=== PATIENT | male | born 1970 | race American Indian/Alaskan Native ===

== ENCOUNTER 2017-02-03 | Inpatient (IN) | payer OTHER ==
--- NOTE | ~2017-02-03 | HP ---
Unit #: [id number] #: [id number] Patient: ASHLEY TAVERA [id number] [place] [address] [id number] I MR#: [id number] NAME: ASHLEY TAVERA ROOM: 79 Age: 47 Sex: M Admission Date: 02/03/2017 : 1970 Attending Physician: Eric Lorenzo M.D. Admitting Physician: Eric Lorenzo M.D. Primary Care Physician: Frieda Menendez Family HISTORY AND PHYSICAL HISTORY OF PRESENT ILLNESS Ashley is a 47 year old admitted to [facility] because of his abuse of alcohol. PAST MEDICAL HISTORY 1. Long history of alcohol abuse. 2. History of detox seizures. PAST SURGICAL HISTORY Nothing reported. ALLERGIES No known drug allergies. SOCIAL HISTORY He does not smoke. Drinks up to a fifth of liquor on a daily basis. Denies illicit drug use. FAMILY HISTORY Medically noncontributory. REVIEW OF SYSTEMS CONSTITUTIONAL: No fever or chills. HEENT: Denies any sore throat, ear pain or runny nose. CARDIOVASCULAR: Denies chest pain, irregular heart rhythm or palpitations. CHEST: Denies shortness of breath or cough. No hemoptysis. GASTROINTESTINAL: Denies nausea, vomiting, diarrhea or chronic constipation. ENDOCRINE: Denies history of increased thirst or urination. No recent significant weight loss or gain. GENITOURINARY: Denies dysuria, frequency, or hematuria. SKIN: Denies any rashes. HEMATOLOGIC: Denies history of increased bleeding or bruising. MUSCULOSKELETAL: Denies any hot, swollen joints. No generalized muscle pain. NEUROLOGIC: Denies problems with vision or speech. No frequent, severe headaches. No numbness, tingling or weakness in any extremities. Denies loss of bladder or bowel control. CURRENT MEDICATIONS Detox protocol. PHYSICAL EXAMINATION Unit #: [id number] #: [id number] Patient: ASHLEY TAVERA GENERAL: Alert, well-nourished, in no apparent distress. VITAL SIGNS: Blood pressure 150/94, heart rate 100, respirations 16, temperature 98.6. WEIGHT: 240. HEIGHT: 6 feet 3 inches. SKIN: Warm and dry without rash or lesion. HEENT: Normocephalic. TMs not viewed. Oral and nasal passages clear. Conjunctivae clear. PERRLA. EOMs intact. NECK: Supple without lymphadenopathy or thyromegaly. HEART: Regular rate and rhythm without murmur. LUNGS: Clear. ABDOMEN: Soft with right upper quadrant tenderness. Positive bowel sounds. : Not done. EXTREMITIES: No evidence of cyanosis, clubbing or edema. Moves all without focal deficit. NEUROLOGICAL: Grossly within normal limits. Cranial Nerves: II: Visual buck are intact. III, IV AND : Extraocular movements are intact. Pupils are equal, round and reactive to light. V: Facial sensation is grossly normal. VII: Facial movements and expression are normal. VIII: Auditory acuity grossly intact. IX, X: Uvula is midline. Phonation is normal. XI: Patient shrugs shoulders and turns head normally. XII: Tongue protrudes in the midline. Sensory and Motor Function: Sensory and motor sensation is grossly normal. Motor: moves all extremities well. Coordination: Gait is normal. Deep Tendon Reflexes: Intact. IMPRESSION Psychiatric admission. RECOMMENDATIONS PSYCHIATRIC: Per psychiatrist. MEDICAL: See no contraindications to participate in facility's activities. MEDICAL PROGNOSIS Good. MEDICAL CONDITION Stable. Dictated by... Rosalee Hicks P.A.-C. for Jeremiah Pillai/ovi TD: 02/03/2017 22:08 JOB #: [id number] Unit #: [id number] #: [id number] Patient: ASHLEY TAVERA HISTORY AND PHYSICAL Page 1 of 1 X Rosalee Hicks X HISTORY AND PHYSICAL
--- NOTE | ~2017-02-03 | PN ---
Unit #: [id number] #: [id number] Patient: ASHLEY TAVERA [id number] [facility] [address] [place] [address] [id number] MR#: [id number] NAME: ASHLEY TAVERA ROOM: [facility] Age: 47 Sex: M Admission Date: 02/03/2017 : 1970 Attending Physician: Eric Lorenzo M.D. Admitting Physician: Eirc Lorenzo M.D. Primary Care Physician: [facility] PROGRESS NOTES DATE 02/04/2017 DISCUSSION Ashley is a 47-year-old male seen on 02/04/2017. The patient interviewed, chart reviewed. Obtained information from nursing staff. The patient compliant and cooperative. Mood sad, dysphoric, seclusive, isolative, guarded, flat affect, sad, dysphoric mood. The patient was having stomach cramping, nausea received Zofran which was affective. Complete review of systems unremarkable. MENTAL STATUS EXAMINATION General appearance, the patient dressed casually. Attention span and concentration fair. Oriented to place and person. Mood and affect labile. Speech monotone. Thought process concrete. The patient denied any thoughts of harming self or others. Recent and remote memory poor. Insight and judgement poor. DIAGNOSES 1. Alcohol use disorder severe. 2. Cannabis abuse disorder moderate. 3. Mood disorder NOS. ASSESSMENT/PLAN Advise to continue with current medication and therapeutic protocol. If needed consider further adjustment of medication. Dictated by... Jeremiah Miramontes/shamir TD: 02/06/2017 21:43 JOB #: [id number] Unit #: [id number] #: [id number] Patient: ASHLEY TAVERA PEASHANA PROGRESS NOTES Page 1 of 1 X Eric Lorenzo MD X PROGRESS NOTE
--- NOTE | ~2017-02-03 | PA ---
Unit #: [id number] #: [id number] Patient: ASHLEY TAVERA [id number] [facility] [address] [place] [address] [id number] I MR#: [id number] NAME: ASHLEY TAVERA ROOM: P179 Age: 47 Sex: M Admission Date: 02/03/2017 : 1970 Date of Assessment: 02/04/2017 Attending Physician: Eric Lorenzo M.D. Admitting Physician: Eric Lorenzo M.D. PSYCHIATRIC ASSESSMENT REVISED REPORT INFORMANT The patient reliability, fair; informant and chart reliability, good. CHIEF COMPLAINT Substance abuse. HISTORY OF PRESENT ILLNESS Mr. Ashley Carvalho is a 47-year-old male seen on 02/03/2017. The patient was brought to [facility] by police. The patient was found intoxicated and passed out in a liquor store parking lot. His car was left at the store. The patient reported that he is a binge drinker and has been drinking the last several days. The patient reported hearing music, seeing faces, shapes. The patient denied any current suicidal or homicidal ideation. Reported diagnosed with depression, but not taking his medication. The patient was sober for almost 6 years, reported that he relapsed after his father in 11/2015. The patient needing inpatient admission at this time for psychiatric stabilization. PAST PSYCHIATRIC HISTORY Remarkable for history of outpatient treatment, inpatient treatment at [place] in 2014, multiple inpatient treatment and different programs. FAMILY HISTORY AND SOCIAL HISTORY PAST PSYCHIATRIC HISTORY Unremarkable. PAST MEDICAL HISTORY Unremarkable. FAMILY HISTORY AND SOCIAL HISTORY Poor support system. No history of any abuse. MEDICAL HISTORY None. ALLERGIES Unit #: [id number] #: [id number] Patient: ASHLEY TAVREA No known drug allergies. SUBSTANCE ABUSE HISTORY History of marijuana and alcohol abuse. REVIEW OF SYSTEMS HEENT: Eyes, clear. Ears, nose, mouth, and throat; clear. CARDIOVASCULAR: Unremarkable. RESPIRATORY: Unremarkable. GI: Unremarkable. : Unremarkable. SKIN: Unremarkable. LYMPH NODE: Unremarkable. NEUROLOGIC: Unremarkable. ENDOCRINE: Unremarkable. HEMATOLOGIC: Unremarkable. ALLERGIC/IMMUNOLOGIC: Unremarkable. MUSCULOSKELETAL: Muscle strength and tone, no atrophy or abnormal movement. Gait normal. MENTAL STATUS EXAMINATION CONSTITUTIONAL: Measurement of vital signs; temperature 98.5, heart rate 64, respiratory rate 20, blood pressure 127/74. Height 6 feet 3 inches, weight 240 pounds. GENERAL APPEARANCE: The patient dressed casually. The patient did not show any facial deformity. MUSCULOSKELETAL: Please see above. PSYCHIATRIC EXAMINATION Description of speech; regular rate. Description of thought process, goal directed. Description of association, intact. Description of abnormal psychotic thinking; the patient denied any hallucination or delusions, but mood lability, substance abuse. Description of the patient's judgment: Concerning everyday activity, poor. Social situation, poor. Concerning psychiatric condition, poor. Complete mental status examination; oriented in time, place, and person. Recent and remote memory, fair. Attention span and concentration, fair. Language, intact. Fund of knowledge, fair. Insight and judgment, fair to slightly impaired. ASSETS AND LIABILITIES Assets, the patient is articulate and able to take care of her ADL. Liability, history of substance abuse and depression. ADMITTING DIAGNOSES Psychiatric: Alcohol use disorder, severe, F10.20; cannabis abuse, moderate, F12.20; mood disorder, not otherwise specified, F32.9. Secondary diagnosis: Deferred. Medical diagnosis: None. Stressors: Psychosocial stressors. PSYCHIATRIC PLAN AND TREATMENT GOAL AND DISCHARGE PLAN 1. Advised to admit the patient on the inpatient unit. Provide safe, supportive, and structured environment. Unit #: [id number] #: [id number] Patient: ASHLEY TAVERA 2. Ordered labs; CBC, CMP, UA, and UDS. 3. Detox protocol and detox monitoring. Resume home medication. If needed, consider further adjustment of medication. TREATMENT GOAL To attain euthymic mood, gain insight into his problem, and learn coping skills. DISCHARGE PLAN Plan to stabilize the patient and consider followup in outpatient program. ESTIMATED LENGTH OF STAY 3 to 5 days. ISHAN/lianne TD: 02/04/2017 11:17 JOB #: [id number] Dictated by... Eric Lorenzo M.D. ISHAN/lianne TD: 02/04/2017 11:26 JOB #: [id number] PSYCHIATRIC ASSESSMENT Page 1 of 1 X Eric Lorenzo MD PSYCHIATRIC ASSESSMENT
--- NOTE | ~2017-02-03 | A ---
[facility] Nutrition Therapy DATE: 02/06/17 Patient: ASHLEY TAVERA Physician: HERNANDEZ Address: [address] [place] [address] Room/Bed: [address], Zip: [place] [address] Admit Date: 02/03/17 Date of : [birth year] Height: 6 3 Weight: [phone] NUTRITIONAL ASSESSMENT: REASON: NUTRITION RISK POINT- EATING DISORDER WITH ACTIVE SYMPTOMS PATIENT ADMITTED FOR ETOH DETOX AND HALLUCINATIONS PMH: LONG HX ETOH ABUSE, HX WITHDRAWAL SEIZURES Anthropometrics: HT: 6'3", WT: 240#, BMI: 30, %IBW: 122 Labs: 02/04/17- K: 3.4 - ALL OTHER NUTRITIONAL LAB VALUES WNL Meds: ARTURO, DETOX PROTOCOL, PROZAC Assessment: PATIENT IS A 47 Y/O MALE ADMITTED FOR ETOH DETOX AND HALLUCINATIONS. PATIENT IS CURRENTLY EMPLOYED, LIVES AT A SOBER LIVING FACILITY, AND HE DRINKS UP TO A FIFTH OF ETOH DAILY INCLLUDING BINGE DRINKING. PER NEEDS ASSESSMENT PATIENT STATED A GOOD APPETITE WITH NO RECENT WEIGHT LOSS. NURSING REPORTED POOR-FAIR PO INTAKES. UPON ADMIT PATIENT WAS ACTIVELY DETOXING AND HAD C/O NAUSEA, STOMACH CRAMPS, ANXIETY, POOR APPETITE, AND POOR SLEEP - WHICH MAY LEAD TO DECREASED PO INTAKES. PATIENT HAS CURRENT C/O NAUSEA AND HEADACHES. THERE IS NO HX OF ANY EATING DISORDERS. PATIENT'S BMI IS ABOVE A HEALTHY RANGE OF 19-25 AND HE IS 122% OF HIS IBW. THIS RD SUSPECTS NUTRITION RISK POINT MAY BE ERRONEOUS. THERE ARE NO SKIN ISSUES NOTED ATT. PATIENT IS ON A REGULAR DIET AND HIS DETOX SYMPTOMS ARE IMPROVING. Dx: INADEQUATE NUTRIENT INTAKE R/T CURRENT CONDITION, DETOXING AEB DECREASED PO INTAKES, C/O NAUSEA Intervention: REGULAR DIET, MEDS PER MD, DETOX, PSYCH Monitoring, Evaluation and Goals: 1. ADEQUATE PO INTAKES >50% OF MEALS 2. PREVENT, CORRECT MICRO/MACRO NUTRIENT DEFICIENCIES MONITOR: WEIGHTS, LABS, PO/FLUID INTAKES Recommendations: 1. CONTINUE REGULAR DIET TOLERATED. OFFER SNACKS BETWEEN MEALS 2. ENCOURAGE ADEQUATE PO AND FLUID INTAKES 3. IF PO INTAKES CONTINUE TO BE <50% OF MEALS PLEASE ORDER ENSURE BID TO PROMOTE ADEQUATE KCAL AND PROTEIN INTAKES [facility] Nutrition Therapy DATE: 02/06/17 Patient: ASHLEY TAVERA Physician: HERNANDEZ Address: [address] [place] [address] Room/Bed: [address], Zip: [place] [address] Admit Date: 02/03/17 Date of : [birth year] Height: 6 3 Weight: [phone] TO F/U PER PROTOCOL AND PRN R/T PATIENT MILDLY COMPROMISED Respectfully, TRACY KISER RD, LD [facility] cc: client file
--- NOTE | ~2017-02-03 | PN ---
Unit #: [id number] #: [id number] Patient: ASHLEY TAVERA [id number] [facility] [address] [place] [address] [id number] I MR#: [id number] NAME: ASHLEY TAVERA ROOM: [facility] Age: 47 Sex: M Admission Date: 02/03/2017 : 1970 Attending Physician: Eric Lorenzo M.D. Admitting Physician: Eric Lorenzo M.D. Primary Care Physician: [facility] PROGRESS NOTES DATE 02/05/2017 DISCUSSION Ashley is a 47-year-old male seen on 02/05/2017. The patient interviewed, chart reviewed. Obtained information from nursing staff. The patient continues to be isolative, flat affect, sad, dysphoric but denied any thoughts of harming self or others. The patient reports feeling better denied and suicidal or homicidal ideation able to attend some of the group. Still having headache, tremors, nausea, weird dreams. Currently on detox protocol. The patient received Ativan this morning twice. Complete review of systems unremarkable. MENTAL STATUS EXAMINATION General appearance, the patient dressed casually. Attention span and concentration fair. Oriented to place and person. Mood and affect labile. Speech monotone. Thought process concrete. The patient denied any thoughts of harming self or others or any psychotic symptom. Recent and remote memory poor. Insight and judgement poor. DIAGNOSES Alcohol use disorder severe Mood disorder NOS ASSESSMENT/PLAN Advise to continue with detox protocol. If needed consider further adjustment of medication. Dictated by... Jeremiah Miramontes/shamir TD: 02/07/2017 05:16 JOB #: [id number] Unit #: [id number] #: [id number] Patient: ASHLEY TAVERA MABLESHANA PROGRESS NOTES Page 1 of 1 X Eric Lorenzo MD PROGRESS NOTE
--- NOTE | ~2017-02-03 | DS ---
Unit #: [id number] #: [id number] Patient: ASHLEY TAVERA [id number] [place] [address] [id number] I MR#: [id number] NAME: ASHLEY TAVERA ROOM: [facility] Age: 47 Sex: M Admission Date: 02/03/2017 : 1970 Discharge Date: 02/06/2017 Attending Physician: Eric Lorenzo M.D. Primary Care Physician: [facility] DISCHARGE SUMMARY REASON FOR ADMISSION Alcohol abuse. DIAGNOSTIC STUDIES LABORATORY RESULTS: Unremarkable except potassium 3.4. HOSPITAL COURSE The patient was admitted to inpatient unit on 02/03/2017 and discharged on 02/06/2017. The patient was treated on the inpatient unit with chemical dependency group, expressive therapy, psychoeducation, psychotherapy, and detox protocol. The patient responded well with the above modalities of treatment and continued on Prozac. The patient was subsequently discharged with a plan to follow up in [facility] program. DISCHARGE MEDICATIONS Prozac 40 mg daily for depression. DISCHARGE DIAGNOSES Psychiatric: Alcohol use disorder, severe, F10.20; cannabis abuse, moderate, F12.20; mood disorder, not otherwise specified, 32.9. Secondary diagnosis: Deferred. Medical diagnosis: None. Stressors: Psychosocial stressors. DISCHARGE INSTRUCTIONS The patient to follow up in outpatient clinic as per social worker school. CONDITION ON DISCHARGE The patient was pleasant and cooperative. Denied any psychotic symptom or any suicidal ideation. PROGNOSIS Guarded. DIET AND ACTIVITY As tolerated. Dictated by... Eric Lorenzo M.D. Unit #: [id number] #: [id number] Patient: ASHLEY TAVERA SZC/modl TD: 02/07/2017 04:57 JOB #: [id number] DISCHARGE SUMMARY Page 1 of 1 X Eric Lorenzo MD X DISCHARGE SUMMARY
[2017-02-04 11:57] LABS: BASOPHIL% 0.6 % (0-2.5); EOSINOPHIL# 0.1 X10e3 (0-0.7); EOSINOPHIL% 1.3 % (0.0-7.0); HEMATOCRIT 42.1 % (38.0-50.0); HEMOGLOBIN 14.1 gm/dL (13.0-16.0); LYMPHOCYTE% 20.3 % (17.0-45.0); MEAN CELL VOLUME 87.7 FL (83-96); MEAN CORPUSCULAR HEMOGLOBIN 29.3 PG (28-34); MEAN CORPUSCULAR HGB CONC 33.5 g/dL (30-36); MEAN PLATELET VOLUME 7.4 FL (6.5-11.5); MONOCYTE# 0.4 X10e3 (0-1.0); MONOCYTE% 7.7 % (3.0-12.0); NEUTROPHIL# 3.6 X10e3 (1.5-7.1); NEUTROPHIL% 70.1 % (40-75); PLATELET COUNT 237 X10e3 (140-420); RED CELL DISTRIBUTION WIDTH 13.5 % (11.0-15.5); WHITE BLOOD COUNT 5.1 X10e3 (4.0-10.5)
[2017-02-04 11:59] LABS: DIFF IND NO
[2017-02-04 12:10] LABS: ALBUMIN SERUM 3.7 g/dL (3.5-5.0); BILIRUBIN,TOTAL 1.4 mg/dL (0.2-2.0); BUN/CREATININE RATIO 16.25; CALCIUM SERUM 8.7 mg/dL (8.4-10.2); CREATININE SERUM 0.8 mg/dL (0.6-1.4); GLOM FILT RATE Estimated 104.9 mL/min (>60); POTASSIUM 3.4 mmol/L (3.5-5.1); PROTEIN TOTAL SERUM 6.6 g/dL (6.0-8.3)
== END 2017-02-06 15:49 | disposition home or self-care (01) | DRG 897 ==
LOC: P1E 08:08
PROVIDERS: Psychiatry & Neurology Psychiatry
PROC: HZ2ZZZZ Detoxification Services for Substance Abuse Treatment (ICD-10-PCS; principal; 2017-02-04)
DX: F10.20 Alcohol dependence, uncomplicated (principal); F39 Unspecified mood [affective] disorder; F12.20 Cannabis dependence, uncomplicated
CPT/HCPCS: 80053; 85025; 86592

== ENCOUNTER 2017-02-11 18:00 | Inpatient (IN) | payer OTHER ==
--- NOTE | ~2017-02-11 | CO ---
Unit #: [id number] #: [id number] Patient: ASHLEY TAVERA [id number] [place] [address] [id number] MR#: [id number] NAME: ASHLEY TAVERA ROOM: [facility] Age: 47 Sex: M Admission Date: 02/11/2017 : 1970 Attending Physician: Eric Lorenzo M.D. Primary Care Physician: Generic Doctor Not In System Consultation Date: 02/12/2017 CONSULTATION REPORT ORDERING PROVIDER Dr. Lorenzo. REASON FOR CONSULT Rash on buttocks. SUBJECTIVE The patient reports that the rash has been present for several days. He thinks that it is from lying in bed and not moving for several days. He reports that the rash is painful, but not itchy. He has a small amount of bloody drainage coming from the rash. OBJECTIVE The patient was noted to have a maculopapular rash that almost is linear in nature and has secondary crusting. It is draining a small amount of bloody drainage on to the sheet. The skin surrounding the area is not erythematous. ASSESSMENT Rash. PLAN To use topical antibiotics and continue to monitor. Dictated by... Shey Eason/lianne TD: 02/13/2017 03:15 JOB #: [id number] CONSULTATION REPORT Page 1 of 1 X SMOOTH EDEN APRN CONSULTATION REPORT
--- NOTE | ~2017-02-11 | PN ---
Unit #: [id number] #: [id number] Patient: ASHLEY TAVERA [id number] [facility] [address] [place] [address] [id number] I MR#: [id number] NAME: ASHLEY TAVERA ROOM: [facility] Age: 47 Sex: M Admission Date: 02/11/2017 : 1970 Attending Physician: Eric Lorenzo M.D. Admitting Physician: Eric Lorenzo M.D. Primary Care Physician: Generic Doctor Not In System [facility] PROGRESS NOTES DATE OF SERVICE: 02/13/2017 DISCUSSION Ashley is a 47-year-old male, seen on 02/13/2017. The patient interviewed, chart reviewed, and obtained information from nursing staff. The patient is compliant and cooperative. Mood is sad, dysphoric, flat affect. The patient reports still having withdrawal symptoms from alcohol, anxious, nervous. Vital signs stable; temperature 98.4, pulse 64, respiratory rate 16, blood pressure 125/83. REVIEW OF SYSTEMS Complete review of systems unremarkable. MENTAL STATUS EXAMINATION General appearance, the patient dressed casually. Attention span and concentration, fair. Oriented in time, place, and person. Mood and affect, sad and dysphoric. Speech, monotone. Thought process, concrete. The patient denied any thoughts of harming self or others. Recent and remote memory, fair to poor. Insight and judgment, fair to poor. DIAGNOSES 1. Alcohol use disorder, severe. 2. Mood disorder, not otherwise specified. ASSESSMENT/PLAN Advised to continue with current medication and therapeutic protocol. If needed, consider further adjustment of medication. Dictated by... Jeremiah Miramontes/lianne TD: 02/14/2017 22:12 JOB #: [id number] Unit #: [id number] #: [id number] Patient: ASHLEY TAVERA PROGRESS NOTES Page 1 of 1 X Eric Lorenzo MD PROGRESS NOTE
--- NOTE | ~2017-02-11 | HP ---
Unit #: [id number] #: [id number] Patient: ASHLEY TAVERA [id number] [facility] [address] [place] [address] [id number] MR#: [id number] NAME: ASHLEY TAVERA ROOM: [facility] Age: 47 Sex: M Admission Date: 02/11/2017 : 1970 Attending Physician: Eric Lorenzo M.D. Admitting Physician: Eric Lorenzo M.D. Primary Care Physician: Generic Doctor Not In System HISTORY AND PHYSICAL The patient is a 47-year-old male admitted to [facility] on 02/11/2017 to detox from alcohol. The patient has had other admissions to this facility for the same. Most recent admission was on 02/03/2017 where a full history and physical was completed. That history and physical has been reviewed no changes need to be made. Dictated by... Shey Eason/shamir TD: 02/13/2017 05:39 JOB #: [id number] HISTORY AND PHYSICAL Page 1 of 1 X SMOOTH EDEN APRN X HISTORY AND PHYSICAL
--- NOTE | ~2017-02-11 | PA ---
Unit #: [id number] #: [id number] Patient: ASHLEY TAVERA [id number] [facility] [address] [place] [address] [id number] I MR#: [id number] NAME: ASHLEY TAVERA ROOM: 85 Age: 47 Sex: M Admission Date: 02/11/2017 : 1970 Date of Assessment: Attending Physician: Eric Lorenzo M.D. Admitting Physician: Eric Lorenzo M.D. Primary Care Physician: Generic Doctor Not In System PSYCHIATRIC ASSESSMENT INFORMANTS The patient's reliability, fair; chart reliability, good. CHIEF COMPLAINT Alcohol abuse, withdrawal. HISTORY OF PRESENT ILLNESS Mr. Gibson is a 47-year-old male, presented with the above-mentioned complaint. The patient was recently discharged on 02/06/2017 from [facility], readmitted due to expressing withdrawal symptoms from alcohol. Reported feeling very sad and depressed. Reported he has been off from his Prozac from the last week. The patient reported that he was residing in a motel from the last week, drinking a lot. The patient reported that he has not eaten in the last week, experiencing withdrawal symptoms including tremor, headache, sweating, anxiety, nausea, agitation, depression. PAST PSYCHIATRIC HISTORY Remarkable for history of previous admission at [facility] on 02/04/2017 and discharged on 02/06/2017. History of multiple treatment in the past at different program. FAMILY HISTORY AND SOCIAL HISTORY Poor support system. No history of abuse. MEDICAL HISTORY None. ALLERGIES No known drug allergies. SUBSTANCE ABUSE HISTORY History of alcohol abuse and marijuana abuse. REVIEW OF SYSTEMS HEENT: Eyes, clear. Ears, nose, mouth, and throat; clear. CARDIOVASCULAR: Unremarkable. RESPIRATORY: Unremarkable. GI: Unremarkable. : Unremarkable. SKIN: Unremarkable. LYMPH NODE: Unremarkable. NEUROLOGIC: Unremarkable. Unit #: [id number] #: [id number] Patient: ASHLEY TAVERA ENDOCRINE: Unremarkable. HEMATOLOGIC: Unremarkable. ALLERGIC/IMMUNOLOGIC: Unremarkable. MUSCULOSKELETAL: Muscle strength and tone, no atrophy or abnormal movement. Gait normal. MENTAL STATUS EXAMINATION CONSTITUTIONAL: Measurement of vital signs; temperature 98.6, pulse 54, respirations 18, blood pressure 137/97. Height 6 feet 4 inches, weight 240 pounds. GENERAL APPEARANCE: The patient dressed casually. The patient did not show any facial deformity. MUSCULOSKELETAL: Muscle strength and tone, no atrophy or abnormal movement. Gait normal. PSYCHIATRIC EXAMINATION Description of speech; regular rate, normal volume. Description of thought process, goal directed. Description of association, intact. Description of abnormal psychotic thinking; the patient denied any hallucination or delusions, but suicidal ideation, denied any homicidal ideation, substance abuse. Description of patient's judgment; concerning everyday activity, poor. Social situation, poor. Concerning psychiatric condition, poor. Complete mental status examination; oriented in time, place, and person. Recent and remote memory, fair. Attention span and concentration, fair. Language, able to name object and repeat phrases. Fund of knowledge, aware of current event and passive vocabulary intact. Mood and affect, sad and dysphoric. Insight and judgment, fair to poor. ASSETS AND LIABILITIES Assets; the patient articulate, able to take care of his ADL. Liability; history of depression, substance abuse. ADMITTING DIAGNOSES Psychiatric: Alcohol use disorder, severe, F10.20; cannabis abuse, moderate, F12.20; mood disorder, not otherwise specified, F32.9. Secondary diagnosis: Deferred. Medical diagnosis: None. Stressors: Psychosocial stressors. PSYCHIATRIC PLAN AND TREATMENT GOAL 1. Advised to admit the patient on the inpatient unit. Provide safe, supportive, and structured environment. 2. Ordered labs; CBC, CMP, UA, and UDS. 3. Detox protocol and detox monitoring. Resume home medication. If needed, consider further adjustment of medication. The patient to attend all the programing on the inpatient unit. Treatment goal to attain euthymic mood, gain insight into his problem, learn coping skills, complete detox. DISCHARGE PLAN Plan to stabilize the patient and consider followup in outpatient program. ESTIMATED LENGTH OF STAY Unit #: [id number] #: [id number] Patient: ASHLEY TAVERA 3 to 5 days. Dictated by... Eric Lorenzo M.D. ISHAN/lianne TD: 02/13/2017 01:24 JOB #: [id number] PSYCHIATRIC ASSESSMENT Page 1 of 1 X Eric Lorenzo MD PSYCHIATRIC ASSESSMENT
--- NOTE | ~2017-02-11 | DS ---
Unit #: [id number] #: [id number] Patient: ASHLEY TAVERA [id number] [facility] [address] [place] [address] [id number] MR#: [id number] NAME: ASHLEY TAVERA ROOM: [facility] Age: 47 Sex: M Admission Date: 02/11/2017 : 1970 Discharge Date: 02/14/2017 Attending Physician: Eric Lorenzo M.D. Primary Care Physician: Generic Doctor Not In System DISCHARGE SUMMARY REASON FOR ADMISSION Alcohol detox. DIAGNOSTIC STUDIES LABORATORY RESULTS: Unremarkable. HOSPITAL COURSE The patient was admitted to inpatient unit on 02/11/2017 and discharged on 02/14/2017. The patient was treated on the inpatient unit with group therapy, individual therapy, chemical dependency group, detox protocol, and detox monitoring. The patient responded well with the above modalities of treatment. Subsequently, the patient was discharge with a plan to follow up in outpatient program. DISCHARGE MEDICATIONS Desyrel 50 mg at bedtime for sleep, Prozac 40 mg daily for depression. DISCHARGE DIAGNOSES Psychiatric: Alcohol use disorder, severe, F10.20; cannabis abuse, moderate, F12.20; mood disorder, not otherwise specified, F32.9. Secondary diagnosis: Deferred. Medical diagnosis: None. Stressors: Psychosocial stressors. DISCHARGE INSTRUCTIONS The patient to follow up in outpatient clinic as per manager social responsibility. CONDITION ON DISCHARGE The patient was pleasant and cooperative. Denied any psychotic symptom or any suicidal ideation. PROGNOSIS Guarded. DIET AND ACTIVITY As tolerated. Dictated by... Eric Lorenzo M.D. Unit #: [id number] #: [id number] Patient: ASHLEY TAVERA SZC/modl TD: 02/15/2017 03:39 JOB #: [id number] DISCHARGE SUMMARY Page 1 of 1 X Eric Lorenzo MD X DISCHARGE SUMMARY
[2017-02-13 09:53] LABS: URINE BLOOD NEG (NEG); URINE GLUCOSE NORM (NORM); URINE KETONE NEG (NEG); URINE LEUKOCYTE ESTERASE NEG (NEG); URINE NITRATE NEG (NEG); URINE PROTEIN 1+ (NEG); URINE UROBILINOGEN 4 MG/DL (NORM)
[2017-02-13 10:05] LABS: URINE APPEARANCE TURBID; URINE BILIRUBIN NEG (NEG); URINE COLOR ORANGE
[2017-02-13 10:39] LABS: U HYALINE CASTS AUWI 0-2 /[LPF]; URINE AMORPHOUS SEDIMENT AMORP URATES; URINE CRYSTALS CALCIUM OXALATE /[HPF]; URINE GRANULAR CAST 0-2 /[HPF]; UWBCS1 AUWI 0-2 (0-5)
[2017-02-13 10:51] LABS: AMPHETAMINE NEG (NEG); BARBITURATES POS (NEG); BENZODIAZEPINES POS (NEG); COCAINE NEG (NEG); MARIJUANA NEG (NEG); OPIATES NEG (NEG); TRICYCLIC ANTIDEPRESSANTS NEG (NEG); U METHADONE NEG (NEG)
== END 2017-02-14 14:45 | DRG 897 ==
LOC: P1E 21:56
PROVIDERS: Psychiatry & Neurology Psychiatry
PROC: HZ2ZZZZ Detoxification Services for Substance Abuse Treatment (ICD-10-PCS; principal; 2017-02-11)
DX: F10.20 Alcohol dependence, uncomplicated (principal); F39 Unspecified mood [affective] disorder; F12.20 Cannabis dependence, uncomplicated; R21 Rash and other nonspecific skin eruption
CPT/HCPCS: 80307; 81003